=== PATIENT | female | born 1975 | race Caucasian/White ===

== ENCOUNTER → 2016-10-12 | Day surgery (SDC) | payer OTHER ==
[~2016-10-12] VITALS: Ht 170.2 cm; Wt 72.6 kg
[~2016-10-12] MED LIST: CLONAZEPAM0.5 M2 PO; CLONAZEPAM0.5 MG PO; IBU-6600 MG PO; IMITREX25 MG PO; METHADONE HCL10 M1 PO; NORCO 325 MG-51 TAB PO; PERCOCET 10-321 EACH PO; POLYETHYLENE G255 GM PO; SUMATRIPTAN SU100 M1 PO
--- NOTE | 2016-10-12 15:30 | Operative Report ---
Operative/Inv Procedure Report Surgery Date: 10/12/16 Name of Procedure: Left knee arthroscopic medial meniscectomy Pre-Operative Diagnosis: Left knee medial meniscal tear Post-Operative Diagnosis: Same Estimated Blood Loss: scant Surgeon/Cotton Opener: LEONARDO BRISENO,HEIDY Anesthesia: laryngeal mask airway, block Implants: None Drains: None Specimens: None Tourniquet: None used Complications: None Condition: Stable Operative Indication: Patient is a 41-year-old woman with a fairly long history of left knee pain. No recent injury but patient had developed gradually worsening symptoms including swelling and mechanical type symptoms. Her evaluation was done to my initial evaluation and this revealed MRI findings of medial meniscal pathology. Due to the ongoing symptoms that have interfere with normal activities she wished to proceed with arthroscopic management of the problem. Risks, benefits expectations of the procedure were discussed including but not limited to the knee pain, need for subsequent surgery, infection, anesthesia risks, DVT. I was also explained to the patient that any of her symptoms that could be coming from an extra-articular source would not be directly affected by the arthroscopic procedure. However anything related to the medial meniscal tear and inflammation related to it would improve with the intra-articular procedure Operative/Procedure Note Note: Patient was brought to the operating room and transferred to the operating table. Once under appropriate anesthesia the left lower extremity was prepped and draped in standard fashion. Preoperative IV antibiotics were given prophylactically. A standard infrapatellar lateral portal site was established. Scope was inserted patellofemoral compartment was visualized. Mild degenerative changes of the median ridge of the patella otherwise no other abnormalities. I entered the medial compartment. The medial meniscus was found to be intact from its anterior horn to its mid body. However there appeared to be a severely complex chronic appearing tear of the posterior horn. Confirmed later with establishing the medial infrapatellar portal site which was done direct vision and a probe was placed on the tear itself. I then used the straight biters followed by shaver to complete the partial medial meniscectomy. The medial meniscal rim posteriorly was found to be stable after meniscectomy. 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 ACL was intact. There was some significant synovial hypertrophy/inflammation of the synovium throughout the knee. I entered the lateral compartment by placing the leg into a figure 4 position and I was able to visualize indirectly probe the lateral meniscus from posterior horn to its anterior horn. It appeared to be intact. No evidence of any significant osteoarthritic changes of the lateral compartment. I went up the lateral gutter. No evidence of loose bodies. I went up to the patellofemoral compartment and copiously irrigated the knee. All fluid and instruments were removed from the knee and the portal sites were closed with interrupted nylon sutures. Appropriate dressings were applied patient was awakened and taken to recovery room in good condition. No intraoperative complications Discharge Disposition: PACU
== END ==
LOC: STS 02:48
DX: M23.222 Derangement of posterior horn of medial meniscus due to old tear or injury, left knee (principal); F17.200 Nicotine dependence, unspecified, uncomplicated; Z79.899 Other long term (current) drug therapy
CPT/HCPCS: 81025; J0690; J2250